=== PATIENT | female | born 1990 | race Caucasian/White ===

== ENCOUNTER → 2020-07-11 15:14 | Outpatient (REF) | payer OTHER, SELFPAY | LOC: ANHLAB 15:14 | PROVIDERS: Visit Provider Nurse Practitioner | DX: C44.319 Basal cell carcinoma of skin of other parts of face (principal) | CPT/HCPCS: 88305 ==

== ENCOUNTER → 2020-07-31 10:26 | Outpatient (REF) | payer OTHER, SELFPAY | LOC: ANHLAB 10:26 | PROVIDERS: Visit Provider Nurse Practitioner | DX: C44.41 Basal cell carcinoma of skin of scalp and neck (principal) | CPT/HCPCS: 88305; 88331 ==

== ENCOUNTER 2021-08-20 10:30 | Emergency (ER) | payer OTHER, SELFPAY ==
--- NOTE | 2021-08-20 10:34 | ED.URI ---
HPI - URI/Sore Throat General Chief Complaint: Upper Respiratory Infection Stated Complaint: sore throat Time Seen by Provider: 08/20/21 10:35 Source: patient and RN notes reviewed History of Present Illness HPI Narrative: Patient is a 31-year-old female who presents the urgent care with complaints of a sore throat and body aches since yesterday. Patient is currently with twins. Denies of any issues with . Patient has been taking Tylenol. Denies of any fever, nausea or vomiting. Denies of any ill exposures. No other acute complaints. No acute stress noted. Patient aware of the plan of care. Some parts of this dictation were generated by voice recognition software and may contain typographical and/or grammatical inaccuracies. Related Data Home Medications Medication Instructions Recorded Confirmed vit no.95-ferrous 1 tablet PO DAILY 08/20/21 08/20/21 fumarate 28 mg-folic acid 800 mcg tablet () Allergies Allergy/AdvReac Type Severity Reaction Status Date / Time No Known Allergies Allergy Verified 08/20/21 10:41 Review of Systems Review of Systems: CONSTITUTIONAL: Denies fever, chills, or sweats. EYES: Denies visual changes, redness, or discharge. ENT: Denies rhinorrhea, congestion, otalgia. Reports of sore throat CARDIOVASCULAR: Denies chest pain, palpitations, or edema. RESPIRATORY: Denies cough or dyspnea. GASTROINTESTINAL: Denies abdominal pain, nausea, vomiting, or diarrhea. GENITOURINARY: Denies dysuria or hematuria. SKIN: Denies rash or itching. MUSCULOSKELETAL: Denies back pain, joint pain. Reports of body aches NEUROLOGIC: Denies headache, numbness, or weakness. All other systems reviewed are negative, except as documented in HPI. PMFSH Surgical History Surgical History History of tonsillectomy Social History Social History Alcohol intake: current Substance use: never Comments At the time of my signature, I reviewed and agree with the nursing past medical, surgical, social, and family history. There is no relevant family history pertinent to the patient complaint. Exam Narrative: GENERAL: This is a well-nourished, well-developed patient, in no apparent distress. HEAD: normocephalic, atraumatic. EYES: PERRL. Sclera clear/white. Vision is grossly intact. EARS: External ears normal, auditory canals clear and without drainage, TMs normal without perforation. Hearing grossly intact. NOSE: External nose normal with no obvious nasal discharge, nares without redness, no rhinorrhea. THROAT: Mucous membranes moist, mild erythema noted posterior oropharynx with bilateral exudate without ulceration. Moderate postnasal drainage NECK: Neck supple, non-tender without lymphadenopathy, masses or thyromegaly. CARDIOVASCULAR: Regular rate and rhythm without murmurs, gallops, or rubs. RESPIRATORY: Clear to auscultation. Breath sounds equal bilaterally. No wheezes, rales, or rhonchi. SKIN: warm, intact with no suspicious lesions or rash, good texture and turgor. NEURO: awake, alert, and oriented to person, place and time. There were no obvious focal neurologic abnormalities. EXTREMITIES: No clubbing, cyanosis, or edema. Course Course Level of Care: Express Care Visit Vital Signs Vital signs: Vital Signs Temperature 97.6 F 08/20/21 10:42 Pulse Rate 81 08/20/21 10:42 Respiratory Rate 20 08/20/21 10:42 Blood Pressure 125/64 08/20/21 10:42 Pulse Oximetry 99 08/20/21 10:42 Oxygen Delivery Room Air 08/20/21 10:42 Temperature 97.6 F 08/20/21 10:42 Pulse Rate 81 08/20/21 10:42 Respiratory Rate 20 08/20/21 10:42 Blood Pressure 125/64 08/20/21 10:42 Pulse Oximetry 99 08/20/21 10:42 Oxygen Delivery Room Air 08/20/21 10:42 Reviewed MDM - URI/Sore Throat MDM Narrative Medical decision making narrative: Reviewe
[2021-08-20 10:42] VITALS: BP 125/64; PULSE 81; RESP 20; TEMP 36.4; O2SAT 99
[2021-08-20 18:35] LABS: SARS-CoV-2 RNA PCR Positive
== END 2021-08-20 11:28 | disposition home or self-care (01) ==
PROVIDERS: Emergency Provider Nurse Practitioner Family; PCP Physician Assistant
DX: O98.519 Other viral diseases complicating pregnancy, unspecified trimester (principal); U07.1 COVID-19; Z3A.00 Weeks of gestation of pregnancy not specified
CPT/HCPCS: 87081; 87880; 99213; C9803; G0463; U0003; U0005

== ENCOUNTER 2022-03-19 12:44 | Outpatient (NON) | payer OTHER, SELFPAY | END 2022-03-19 12:45 | disposition home or self-care (01) | LOC: ANHLAB 03-20 12:45 | PROVIDERS: PCP Physician Assistant; Visit Provider Nurse Practitioner | DX: D23.5 Other benign neoplasm of skin of trunk (principal) | CPT/HCPCS: 88305 ==

== ENCOUNTER 2022-06-04 09:00 | Outpatient (NON) | payer OTHER, SELFPAY | END 2022-06-04 09:01 | disposition home or self-care (01) | LOC: ANHLAB 06-05 09:56 | PROVIDERS: PCP Physician Assistant; Visit Provider Nurse Practitioner | DX: I78.1 Nevus, non-neoplastic (principal); L90.5 Scar conditions and fibrosis of skin | CPT/HCPCS: 88305 ==